=== PATIENT | female | born 1975 | race American Indian/Alaskan Native ===

== ENCOUNTER 2018-12-26 11:14 | Emergency (ER) | payer MEDICARE ==
[2018-12-26 11:28] VITALS: BP 174/100
--- NOTE | 2018-12-26 11:29 | Event Note ---
ED Screening Note Date of service: 12/26/18 Time: 11:25 ED Screening Note: This is a 43 y.o. F. with headache, dizzy, and nauseous upon waking. PMH of lupus This initial assessment/diagnostic orders/clinical plan/treatment(s) is/are subject to change based on patients health status, clinical progression and re- assessment by fellow clinical providers in the ED. Further treatment and workup at subsequent clinical providers discretion. Patient/guardian urged not to elope from the ED as their condition may be serious if not clinically assessed and managed. Initial orders include: Labs
[2018-12-26 12:24] LABS: Basophils # (Auto) 0.1 K/mm3 (0.0-0.1); Basophils % (Auto) 1.1 % (0.0-1.8); Eosinophils # (Auto) 0.3 K/mm3 (0.0-0.4); Eosinophils % (Auto) 4.1 % (0.0-4.3); Hemoglobin 14.3 gm/dl (10.1-14.3); Lymphocytes # (Auto) 3.1 K/mm3 (1.2-5.4); Lymphocytes % (Auto) 44.9 % (13.4-35.0); Mean Corpuscular HGB Conc 34 % (30-34); Mean Corpuscular Volume 103 fl (79-97); Monocytes # (Auto) 0.3 K/mm3 (0.0-0.8); Monocytes % (Auto) 4.8 % (0.0-7.3); Platelet Count 340 K/mm3 (140-440); Red Blood Count 4.07 M/mm3 (3.65-5.03); Red Cell Distribution Width 14.4 % (13.2-15.2)
[2018-12-26 12:36] LABS: Alanine Aminotransferase 18 units/L (7-56); Albumin 4.2 g/dL (3.9-5); BUN/Creatinine Ratio 18; Blood Urea Nitrogen 11 mg/dL (7-17); Calcium 9.1 mg/dL (8.4-10.2); Hemolysis Index 12
[2018-12-26 12:47] LABS: Bacteria,Urine 1+ /HPF (Negative); Bilirubin,Urine NEG (Negative); Blood,Urine NEG (Negative); Color,Urine Yellow (Yellow); Mucus,Urine FEW /HPF; Urobilinogen,Urine < 2.0 mg/dL (<2.0)
[2018-12-26 12:49] LABS: HCG Qualitative,Urine Negative (Negative)
[2018-12-26] MEDS ORDERED: FIORICET PO ONE (16:13)
[2018-12-26] MEDS ORDERED: SOLU-Medrol IV ONE (16:13)
[2018-12-26] MEDS ORDERED: LEVAQUIN 750MG/150ML 750 MG/150 ML BAG IV ONE (16:13)
[2018-12-26] MEDS ORDERED: BENADRYL IV ONE (16:14)
[2018-12-26] MEDS ORDERED: REGLAN IV ONE (16:14)
--- NOTE | 2018-12-26 16:15 | Emergency Department Report ---
ED General Adult HPI - General Chief complaint: Pain General Stated complaint: LUPUS FLARE UP/SEVERE HEADACHE Time Seen by Provider: 12/26/18 11:24 Source: patient Mode of arrival: Ambulatory Limitations: No Limitations - History of Present Illness Initial comments: She presents to the emergency department with a chief complaint of a diffuse headache that started 2 days ago. The patient has a history of migraines and states that this headache is no different than her previous migraines. Patient denies this being the worst headache of her life.The patient also complains of a lupus flare as well. Patient denies Chest pain,SOB, or abdominal pain. -: Gradual Location: head Severity scale (0 -10): 6 Quality: other (throbbing ) Consistency: constant Improves with: none Worsens with: none Associated Symptoms: denies other symptoms Treatments Prior to Arrival: none - Related Data Home Medications Medication Instructions Recorded Confirmed Last Taken Lisinopril [Zestril] 20 mg PO QDAY 12/26/18 12/26/18 12/26/18 Previous Rx's Medication Instructions Recorded Last Taken Type Butalb/Acetamin/Caff 50-325-40 1 tab PO Q6HR PRN #24 tab 12/26/18 Unknown Rx [Fioricet] levoFLOXacin [Levaquin] 750 mg PO QDAY #5 tablet 12/26/18 Unknown Rx Allergies Allergy/AdvReac Type Severity Reaction Status Date / Time prochlorperazine Allergy Anaphylaxis Verified 12/26/18 11:21 [From Compazine] propoxyphene Allergy Anaphylaxis Verified 12/26/18 11:25 [From Darvocet-N 100] ED Review of Systems ROS: Stated complaint: LUPUS FLARE UP/SEVERE HEADACHE Other details as noted in HPI Comment: All other systems reviewed and negative Constitutional: denies: chills, fever Eyes: denies: eye pain, eye discharge, vision change ENT: denies: ear pain, throat pain Respiratory: denies: cough, shortness of breath, wheezing Cardiovascular: denies: chest pain, palpitations Endocrine: no symptoms reported Gastrointestinal: denies: abdominal pain, nausea, diarrhea Genitourinary: denies: urgency, dysuria, discharge Musculoskeletal: denies: back pain, joint swelling, arthralgia Skin: denies: rash, lesions Neurological: denies: headache, weakness, paresthesias Psychiatric: denies: anxiety, depression Hematological/Lymphatic: denies: easy bleeding, easy bruising ED Past Medical Hx - Past Medical History Previous Medical History?: Yes Hx Headaches / Migraines: Yes Additional medical history: Dextracardia, Lupus - Surgical History Past Surgical History?: Yes Hx Open Heart Surgery: Yes (x2) Additional Surgical History: spleenectomy, greenfil filter, ablasion of uterus - Social History Smoking Status: Never Smoker Substance Use Type: None - Medications Home Medications: Home Medications Medication Instructions Recorded Confirmed Last Taken Type Butalb/Acetamin/Caff 50-325-40 1 tab PO Q6HR PRN #24 tab 12/26/18 Unknown Rx [Fioricet] Lisinopril [Zestril] 20 mg PO QDAY 12/26/18 12/26/18 12/26/18 History levoFLOXacin [Levaquin] 750 mg PO QDAY #5 tablet 12/26/18 Unknown Rx ED Physical Exam - General Limitations: No Limitations General appearance: alert, in no apparent distress - Head Head exam: Present: atraumatic, normocephalic - Eye Eye exam: Present: normal appearance, PERRL, EOMI - ENT ENT exam: Present: mucous membranes moist - Neck Neck exam: Present: normal inspection - Respiratory Respiratory exam: Present: normal lung sounds bilaterally. Absent: respiratory distress - Cardiovascular Cardiovascular Exam: Present: regular rate, normal rhythm. Absent: systolic murmur, diastolic murmur, rubs, gallop - GI/Abdominal GI/Abdominal exam: Present: soft, normal bowel sounds. Absent: distended, tenderness - Extremities Exam Extremities exam: Present: normal inspection - Back Exam Back exam: Present: normal inspection - Neurological Exam Neurological exam: Present: alert, oriented X3, CN II-XII intact, normal gait, reflexes normal. Absent: motor sensory deficit - Psychiatric Psychiatric exam: Present: normal affect, normal mood - Skin Skin exam: Present: warm, dry, intact, normal color. Absent: rash ED Course Vital Signs 12/26/18 11:25 Temperature 98.2 F Pulse Rate 91 H Respiratory 20 Rate Blood Pressure 174/100 O2 Sat by Pulse 99 Oximetry ED Medical Decision Making - Lab Data Result diagrams: 12/26/18 11:54 12/26/18 11:54 Lab Results 08/14/19 08/14/19 08/14/19 Range/Units 11:54 11:54 12:09 WBC 7.0 (4.5-11.0) K/mm3 RBC 4.07 (3.65-5.03) M/mm3 Hgb 14.3 (10.1-14.3) gm/dl Hct 42.0 (30.3-42.9) % MCV 103 H (79-97) fl MCH 35 H (28-32) pg MCHC 34 (30-34) % RDW 14.4 (13.2-15.2) % Plt Count 340 (140-440) K/mm3 Lymph % (Auto) 44.9 H (13.4-35.0) % Daniels % (Auto) 4.8 (0.0-7.3) % Eos % (Auto) 4.1 (0.0-4.3) % Baso % (Auto) 1.1 (0.0-1.8) % Lymph # 3.1 (1.2-5.4) K/mm3 Daniels # 0.3 (0.0-0.8) K/mm3 Eos # 0.3 (0.0-0.4) K/mm3 Baso # 0.1 (0.0-0.1) K/mm3 Seg Neutrophils % 45.1 (40.0-70.0) % Seg Neutrophils # 3.2 (1.8-7.7) K/mm3 Sodium 142 (137-145) mmol/L Potassium 4.2 (3.6-5.0) mmol/L Chloride 105.9 (98-107) mmol/L Carbon Dioxide 22 (22-30) mmol/L Anion Gap 18 mmol/L BUN 11 (7-17) mg/dL Creatinine 0.6 L (0.7-1.2) mg/dL Estimated GFR > 60 ml/min BUN/Creatinine Ratio 18 % Glucose 96 (65-100) mg/dL Calcium 9.1 (8.4-10.2) mg/dL Total Bilirubin 0.30 (0.1-1.2) mg/dL AST 18 (5-40) units/L ALT 18 (7-56) units/L Alkaline Phosphatase 69 (35-129) units/L Total Protein 7.5 (6.3-8.2) g/dL Albumin 4.2 (3.9-5) g/dL Albumin/Globulin Ratio 1.3 % Urine Color Yellow (Yellow) Urine Turbidity Cloudy (Clear) Urine pH 9.0 H (5.0-7.0) Ur Specific [place] 1.016 (1.003-1.030) Urine Protein 30 mg/dl (Negative) mg/dL Urine Glucose (UA) Neg (Negative) mg/dL Urine Ketones Neg (Negative) mg/dL Urine Blood Neg (Negative) Urine Nitrite Neg (Negative) Urine Bilirubin Neg (Negative) Urine Urobilinogen < 2.0 (<2.0) mg/dL Ur Leukocyte Esterase Mod (Negative) Urine WBC (Auto) 9.0 H (0.0-6.0) /HPF Urine RBC (Auto) 3.0 (0.0-6.0) /HPF U Epithel Cells (Auto) 22.0 H (0-13.0) /HPF Urine Bacteria (Auto) 1+ (Negative) /HPF Urine Mucus Few /HPF Urine HCG, Qual Negative (Negative) - Medical Decision Making Symptoms improved with medications Discussed results with patient Critical care attestation.: If time is entered above; I have spent that time in minutes in the direct care of this critically ill patient, excluding procedure time. ED Disposition Clinical Impression: Headache, UTI (urinary tract infection) Disposition: TO HOME OR SELFCARE Is pt being admited?: No Does the pt Need Aspirin: No Condition: Stable Instructions: Urinary Tract Infection in Women (ED), Acute Headache (ED) Additional Instructions: return if worse Prescriptions: Butalb/Acetamin/Caff 50-325-40 [Fioricet] 1 tab PO Q6HR PRN #24 tab PRN Reason: Headache levoFLOXacin [Levaquin] 750 mg PO QDAY #5 tablet Referrals: ASHLYN CAMACHO MD [Primary Care Provider] - 3-5 Days [facility] [Provider Group] - 3-5 Days [facility] [Provider Group] - 3-5 Days Time of Disposition: 18:02
[2018-12-26] MEDS ORDERED: NACL 0.9% 1000 ML 1,000 ML ONE (17:10)
[2018-12-26] MEDS ORDERED: NACL 0.9% 1000 ML 1,000 ML IV ONE (17:12)
[2018-12-26] MEDS ORDERED: ZOFRAN ODT PO ONE (17:55)
[2018-12-26] MEDS ORDERED: NORCO 5/325 PO ONE (17:55)
== END 2018-12-26 18:38 | disposition home or self-care (01) ==
LOC: ED 11:14
DX: G43.909 Migraine, unspecified, not intractable, without status migrainosus (principal); N39.0 Urinary tract infection, site not specified; Z90.89 Acquired absence of other organs; Z79.899 Other long term (current) drug therapy; Z98.890 Other specified postprocedural states; Z88.8 Allergy status to other drugs, medicaments and biological substances
CPT/HCPCS: 36415; 80053; 81001; 81025; 85025; 87086; 96365; 96375; 99283; J1200; J1956; J2765; J2930; J7030; Q0162